=== PATIENT | female | born 2005 | race Two or more races ===

== ENCOUNTER 2025-06-06 10:30 | Inpatient (IN) | payer BC ==
[~2025-06-06] VITALS: Ht 165.1 cm; Wt 56.4 kg
[2025-06-06] MEDS: LEVETIRACETAM 500MG PREMIX 100 ML IV ONE ×2 (10:51→11:17)
[2025-06-06] MEDS: MAGNESIUM 2 G PREMIX 50 ML IV ONE (10:51)
[2025-06-06 10:59] LABS: BASOPHILS % 0.3 % (0.0-2.0); EOSINOPHILS % 0.8 % (0.0-5.0); HEMATOCRIT. 36.2 % (36.0-48.0); HEMOGLOBIN. 11.8 g/dL (12.0-16.0); LYMPHOCYTES % 7.6 % (20.0-50.0); MEAN PLATELET VOLUME 8.1 fl (7.4-10.4); MONOCYTES % 3.9 % (2.0-8.0); NEUTROPHILS % 87.4 % (40.0-76.0); PLATELET 326 x1000/uL (130-400); RED BLOOD CELL COUNT 4.29 mill/uL (4.2-5.4); RED CELL DISTRIBUTION WIDTH 14.1 % (11.6-14.6)
[2025-06-06] MEDS: LORAZEPAM 2MG/ML UD SYRINGE IV SCH (11:02)
[2025-06-06 11:11] LABS: HCG SCREEN NEGATIVE
[2025-06-06 11:13] LABS: CREATININE 0.7 mg/dL (0.6-1.0); PROTEIN TOTAL 7.1 g/dL (6.0-8.3); UREA NITROGEN BLOOD 7 mg/dL (9-23)
[2025-06-06 11:15] LABS: ASPARTATE AMINOTRANSFERASE 16 IU/L (<34); BILIRUBIN TOTAL 0.7 mg/dL (0.1-1.0)
[2025-06-06] MEDS: LORAZEPAM 2MG/ML UD SYRINGE IV NR (13:01)
[2025-06-06] MEDS ORDERED: ACETAMINOPHEN 325MG TABLET PO PRN (18:45)
[2025-06-06] MEDS ORDERED: MAGNESIUM/ALUMINUM HYDROXIDE/SIMETHICONE 30ML UDC PO PRN (18:45)
[2025-06-06 18:58] VITALS: BP 102/66; PULSE 80; RESP 17; TEMP 36.2512
[2025-06-06 20:00] VITALS: BP 94/50; PULSE 85; RESP 20; TEMP 36.9; O2SAT 98
[2025-06-06] MEDS: HYDROXYZINE 25MG TABLET PO SCH (21:24)
[2025-06-06] MEDS: LAMOTRIGINE 100MG TABLET PO SCH (21:24)
[2025-06-06] MEDS: BUSPIRONE HCL 5MG TABLET PO SCH (21:24)
[2025-06-06] MEDS: SODIUM CHLORIDE 0.9% 3ML FLUSH IVF SCH (21:25)
[2025-06-07] VITALS (40 sets, daily range): BP systolic 91–118; BP diastolic 45–84; PULSE 71–129; RESP 17–24; TEMP 36.6–37.1; O2SAT 98–100
[2025-06-07] MEDS: VENLAFAXINE HCL 37.5MG SR CAPSULE 24HR PO SCH (10:21)
[2025-06-07] MEDS: LAMOTRIGINE 25MG TABLET PO SCH (10:21)
[2025-06-07] MEDS: LORAZEPAM 2MG/ML UD SYRINGE IV PRN (13:49)
[2025-06-07] MEDS: LORAZEPAM 2MG/ML UD SYRINGE IV NR ×2 (14:15)
[2025-06-07] MEDS ORDERED: MIDAZOLAM HCL 5 MG/ML VIAL IV NR (14:15)
[2025-06-07] MEDS ORDERED: LEVETIRACETAM 500MG in NACL 100ML PREMIX IV ONE (14:30)
[2025-06-07] MEDS: ONDANSETRON HCL 4MG/2ML INJ IV PRN (15:23)
[2025-06-07] MEDS: PROPOFOL 10MG/ML 100ML 100 ML IV PRN (15:31)
[2025-06-07] MEDS: LEVETIRACETAM 2,000 MG in SODIUM CHLORIDE 0.9% 100 ML IV SCH (16:09)
[2025-06-07 16:23] LABS: BG BASE EXCESS -0.4 mmol/L (-2.0-3.0); BG CARBOXYHEMOGLOBIN 0.1 % (0.5-1.5); BG DEOXYHEMOGLOBIN 0.3 % (0.0-5.0); BG FRACTION INSPIRED OXYGEN 100; BG HCO3 ACT 23.5 mmol/L (21.0-28.0); BG METHEMOGLOBIN 0.0 % (0.5-1.5); BG OXYGEN SATURATION 99.7 % (94.0-98.0); BG OXYHEMOGLOBIN 99.6 % (94.0-98.0); BG PCO2 36.2 mmHg (32.0-45.0); BG PEEP (cmH2O) 5.0 cmH2O; BG PH 7.431 (7.350-7.450); BG PO2 549.2 mmHg (83.0-108.0); BG SAMPLE SITE RIGHT BRACHIAL; BG TIDAL VOLUME(mL) 400.0 mL; BG TOTAL HEMOGLOBIN 13.0 g/dL (12.0-16.0); BG VENT MODE VENT - AC; BG VENT RATE 18.0 set
[2025-06-07] MEDS ORDERED: IPRATROPIUM/ALBUTEROL 0.5-3(2.5)MG/3ML NEB HHN PRN (17:15)
[2025-06-07] MEDS: DOXYCYCLINE 100MG/100ML 100 ML IV SCH (21:18)
[2025-06-07] MEDS: LEVETIRACETAM 1000MG PREMIX 100 ML IV SCH (21:18)
[2025-06-08] VITALS (133 sets, daily range): BP systolic 95–118; BP diastolic 60–82; PULSE 67–124; RESP 14–21; TEMP 36.7–36.8; O2SAT 99–100
[2025-06-08 08:52] LABS: CLARITY URINE CLOUDY (CLEAR); COLOR URINE YELLOW (YELLOW); GLUCOSE URINE NEGATIVE (NEGATIVE); KETONES URINE 1+ (NEGATIVE); LEUKOCYTE ESTERASE URINE TRACE (NEGATIVE); NITRITE URINE NEGATIVE (NEGATIVE); OCCULT BLOOD URINE NEGATIVE (NEGATIVE); PH URINE 7.5 (4.5-8.0); PROTEIN URINE TRACE (NEGATIVE); SPECIFIC GRAVITY URINE 1.032 (1.005-1.030); UROBILINOGEN URINE 1.0 E.U./dL (0.2-1.0)
[2025-06-08 09:03] LABS: *AMPHETAMINES SCREEN URINE NEGATIVE (NEGATIVE)
[2025-06-08 09:05] LABS: *BENZODIAZEPINES SCREEN URINE NEGATIVE (NEGATIVE)
[2025-06-08 09:06] LABS: *BARBITURATES SCREEN URINE NEGATIVE (NEGATIVE); *COCAINE SCREEN URINE NEGATIVE (NEGATIVE); CANNABINOID URINE SCREEN NEGATIVE (NEGATIVE); ECSTASY MDMA SCREEN URINE NEGATIVE (NEGATIVE); METHADONE URINE SCREEN NEGATIVE (NEGATIVE); OPIATES URINE SCREEN NEGATIVE (NEGATIVE); PHENCYCLIDINE URINE SCREEN NEGATIVE (NEGATIVE)
[2025-06-08 09:34] LABS: AMORPHOUS SEDIMENT URINE 2+ /lpf
[2025-06-08 09:35] LABS: SQUAMOUS EPITHELIAL CELL URINE RARE /lpf (RARE/1+)
[2025-06-08 09:36] LABS: BACTERIA URINE 2+; WBC URINE 0-2 /hpf (0-2)
[2025-06-08 09:37] LABS: MUCUS URINE TRACE /lpf (< = 2+)
[2025-06-08 09:38] LABS: RBC URINE NONE SEEN /hpf (0-2)
[2025-06-08] MEDS: LORAZEPAM 2MG/ML UD SYRINGE IV PRN ×2 (14:31→19:37)
[2025-06-08] MEDS: LACOSAMIDE 100 MG in SODIUM CHLORIDE 0.9% 50 ML IV SCH (18:10)
[2025-06-08] MEDS: DEXT 5%/0.45% NACL 1000ML 1,000 ML IV SCH (19:49)
[2025-06-08] MEDS: PROPOFOL 10MG/ML 100ML 100 ML IV PRN (19:49)
[2025-06-08] MEDS: LAMOTRIGINE 150MG TABLET PO SCH (21:46)
[2025-06-09] VITALS (90 sets, daily range): BP systolic 95–132; BP diastolic 53–83; PULSE 67–124; RESP 13–29; TEMP 36.6–37.4; O2SAT 96–100
[2025-06-09] MEDS: DEXMEDETOMIDINE 100 ML IV PRN (21:00)
[2025-06-10] VITALS (103 sets, daily range): BP systolic 79–121; BP diastolic 41–91; PULSE 47–141; RESP 9–34; TEMP 36.5–37.5; O2SAT 88–100
[2025-06-10] MEDS ORDERED: SODIUM CHLORIDE 0.9% 1,000 ML IV SCH (02:15)
[2025-06-10 05:32] LABS: BG BASE EXCESS -4.0 mmol/L (-2.0-3.0); BG CARBOXYHEMOGLOBIN 0.5 % (0.5-1.5); BG DEOXYHEMOGLOBIN 2.3 % (0.0-5.0); BG FLOW(L/min) 3.00 L/min; BG FRACTION INSPIRED OXYGEN 32; BG HCO3 ACT 21.2 mmol/L (21.0-28.0); BG METHEMOGLOBIN 0.2 % (0.5-1.5); BG OXYGEN SATURATION 97.7 % (94.0-98.0); BG OXYHEMOGLOBIN 97.0 % (94.0-98.0); BG PCO2 39.2 mmHg (32.0-45.0); BG PH 7.351 (7.350-7.450); BG PO2 103.2 mmHg (83.0-108.0); BG SAMPLE SITE RIGHT BRACHIAL; BG TOTAL HEMOGLOBIN 11.0 g/dL (12.0-16.0); BG VENT MODE NASAL CANNULA
[2025-06-10 07:29] LABS: BASOPHILS % 0.4 % (0.0-2.0); EOSINOPHILS % 6.4 % (0.0-5.0); HEMATOCRIT. 31.7 % (36.0-48.0); HEMOGLOBIN. 10.3 g/dL (12.0-16.0); LYMPHOCYTES % 11.7 % (20.0-50.0); MEAN PLATELET VOLUME 9.3 fl (7.4-10.4); MONOCYTES % 8.8 % (2.0-8.0); NEUTROPHILS % 72.7 % (40.0-76.0); PLATELET 221 x1000/uL (130-400); RED BLOOD CELL COUNT 3.69 mill/uL (4.2-5.4); RED CELL DISTRIBUTION WIDTH 13.6 % (11.6-14.6)
[2025-06-10 07:40] LABS: CREATININE 0.6 mg/dL (0.6-1.0); UREA NITROGEN BLOOD 7 mg/dL (9-23)
[2025-06-10] MEDS: MIDAZOLAM HCL 2 MG/2 ML VIAL IV SCH ×2 (11:14→11:30)
[2025-06-11] VITALS (72 sets, daily range): BP systolic 80–119; BP diastolic 46–85; PULSE 71–218; RESP 8–36; TEMP 36.7–37.5; O2SAT 92–100
[2025-06-11 06:14] LABS: BASOPHILS % 0.5 % (0.0-2.0); EOSINOPHILS % 4.9 % (0.0-5.0); HEMATOCRIT. 34.9 % (36.0-48.0); HEMOGLOBIN. 11.4 g/dL (12.0-16.0); LYMPHOCYTES % 14.3 % (20.0-50.0); MEAN PLATELET VOLUME 8.7 fl (7.4-10.4); MONOCYTES % 10.2 % (2.0-8.0); NEUTROPHILS % 70.1 % (40.0-76.0); PLATELET 268 x1000/uL (130-400); RED BLOOD CELL COUNT 4.11 mill/uL (4.2-5.4); RED CELL DISTRIBUTION WIDTH 13.6 % (11.6-14.6)
[2025-06-11 06:21] LABS: CREATININE 0.7 mg/dL (0.6-1.0); UREA NITROGEN BLOOD 5 mg/dL (9-23)
[2025-06-11 06:22] LABS: PROTEIN TOTAL 6.0 g/dL (6.0-8.3)
[2025-06-11 06:23] LABS: ASPARTATE AMINOTRANSFERASE 21 IU/L (<34); PHOSPHORUS 3.0 mg/dL (2.5-4.9)
[2025-06-11 06:24] LABS: BILIRUBIN TOTAL 0.7 mg/dL (0.1-1.0)
[2025-06-11 06:38] LABS: INR 1.0
[2025-06-11] MEDS: ENOXAPARIN 40MG/0.4ML SYR SUBCUT SCH (08:58)
[2025-06-11] MEDS: MAGNESIUM 2 G PREMIX 50 ML IV NR (08:58)
[2025-06-11] MEDS: ACETAMINOPHEN 325MG TABLET PO PRN (21:22)
[2025-06-11] MEDS: FAMOTIDINE 20MG TABLET PO SCH (21:22)
[2025-06-12] VITALS (62 sets, daily range): BP systolic 85–116; BP diastolic 41–77; PULSE 49–141; RESP 6–31; TEMP 36.6–37.2; O2SAT 92–100
[2025-06-12] MEDS: SODIUM CHLORIDE 0.9% 1,000 ML IV ONE (05:35)
[2025-06-12 06:00] LABS: BASOPHILS % 0.8 % (0.0-2.0); EOSINOPHILS % 6.0 % (0.0-5.0); HEMATOCRIT. 33.2 % (36.0-48.0); HEMOGLOBIN. 10.9 g/dL (12.0-16.0); LYMPHOCYTES % 25.3 % (20.0-50.0); MEAN PLATELET VOLUME 8.3 fl (7.4-10.4); MONOCYTES % 11.3 % (2.0-8.0); NEUTROPHILS % 56.6 % (40.0-76.0); PLATELET 287 x1000/uL (130-400); RED BLOOD CELL COUNT 3.90 mill/uL (4.2-5.4); RED CELL DISTRIBUTION WIDTH 13.5 % (11.6-14.6)
[2025-06-12] MEDS: DOPAMINE 400MG/250ML PREMIX 250 ML IV PRN (06:29)
[2025-06-12 06:30] LABS: CREATININE 0.6 mg/dL (0.6-1.0)
[2025-06-12 06:31] LABS: UREA NITROGEN BLOOD 5 mg/dL (9-23)
[2025-06-12 06:33] LABS: PHOSPHORUS 3.6 mg/dL (2.5-4.9)
[2025-06-12] MEDS: MIDODRINE HCL 5MG TABLET PO SCH (09:50)
[2025-06-13 00:50] VITALS: BP 99/53; PULSE 81; RESP 19; TEMP 37; O2SAT 97
[2025-06-13 04:13] VITALS: BP 97/58; PULSE 88; RESP 15; TEMP 36.8; O2SAT 97
[2025-06-13 08:00] VITALS: BP 87/57; PULSE 81; RESP 17; TEMP 36.4; O2SAT 99
[2025-06-13 12:00] VITALS: BP 105/70; PULSE 92; RESP 12; TEMP 36.5; O2SAT 99
[2025-06-13] MEDS: LEVETIRACETAM 500MG TABLET PO NR (12:17)
[2025-06-13 13:18] VITALS: BP 105/70; PULSE 92; RESP 12; TEMP 97.7
[2025-06-13] MEDS ORDERED: LEVETIRACETAM 500MG TABLET PO SCH (21:00)
== END 2025-06-13 15:09 | disposition home or self-care (01) | DRG 100 ==
LOC: ER 10:30 → EDBEDREQ 12:31 → EDBEDREQTM 12:31 → EDBEDREQSVC 12:31 → ENRESERV 12:38 → 8WST 12:50 → 6WST 13:55 → CVICU 06-07 15:19 → 3WST 06-12 15:01
PROVIDERS: ADMIT Internal Medicine; ATTEND Internal Medicine
PROC: 0BH17EZ Insertion of Endotracheal Airway into Trachea, Via Natural or Artificial Opening (ICD-10-PCS; 2025-06-07)
PROC: 5A1945Z Respiratory Ventilation, 24-96 Consecutive Hours (ICD-10-PCS; 2025-06-07)
PROC: 4A10X4Z Monitoring of Central Nervous Electrical Activity, External Approach (ICD-10-PCS; principal; 2025-06-10)
DX: G40.901 Epilepsy, unspecified, not intractable, with status epilepticus (principal); J96.01 Acute respiratory failure with hypoxia; R45.851 Suicidal ideations; F90.9 Attention-deficit hyperactivity disorder, unspecified type
CPT/HCPCS: 31720; 36415; 36600; 71045; 80048; 80053; 80305; 80339; 81003; 82375; 82805; 82962; 83735; 84100; 84145; 84478; 84703; 85025; 87070; 93005; 94002; 94003; 94070; 94664; 95816; 99291; A4606; J1265; J1650; J1953; J2060; J2250; J2405; J2704; J3475; J3490; J7050